=== PATIENT | male | born 1950 | race African-American/Black ===

== ENCOUNTER 2018-01-14 12:58 | Inpatient (IN) | payer MEDICARE ==
[~2018-01-14] VITALS: Ht 182.9 cm; Wt 68.9 kg
--- NOTE | 2018-01-14 13:10 | NUR ---
Pt arrived on 5150 hold (DTO), pt was already medically cleared at sending facility. Per pt is medically clear and may be trans to MHU. No beds available at this time per MHU and nursing sewing department supervisor. Pt is in room 3, no sitter available for 1:1 observation.
[2018-01-14] MEDS ORDERED: FURO40TA5 PO (13:23)
[2018-01-14] MEDS ORDERED: CHOL500L3 PO (13:23)
[2018-01-14] MEDS ORDERED: METF-440 PO (13:23)
[2018-01-14] MEDS ORDERED: CLOP75TA15 PO (13:23)
[2018-01-14] MEDS ORDERED: ATOR80TA PO (13:23)
[2018-01-14] MEDS ORDERED: METO200T49 PO (13:23)
[2018-01-14] MEDS ORDERED: LISI40TA4 PO (13:23)
[2018-01-14] MEDS ORDERED: ASPI81TA31 PO (13:23)
[2018-01-14] MEDS ORDERED: TRAZ-182 PO (13:23)
[2018-01-14] MEDS ORDERED: SPIR25TA6 PO (13:23)
[2018-01-14] MEDS ORDERED: DOCU100C36 PO (13:23)
[2018-01-14] MEDS ORDERED: SERT50TA PO (13:23)
--- NOTE | 2018-01-14 16:00 | NUR ---
Patient is resting comfortably in bed with eyes closed
--- NOTE | 2018-01-14 16:17 | NUR ---
ALEYDA SCRUGGS RN AT MHU ROOM NOT AVAILABLE AND CAN NOT TAKE REPORT AT THIS TIME. WILL CALL BACK IN 30 MINUTES.
--- NOTE | 2018-01-14 16:55 | NUR ---
Pt. admitted to [facility] , under care of Dr. URIOSTEGUI Belongs List completed
--- NOTE | 2018-01-14 16:56 | NUR ---
ALEYDA BAIRES/KAEL FUENTES HOLD PATIENT IN ER FOR NOW.
--- NOTE | 2018-01-14 17:24 | NUR ---
CALLED AND SPOKE WITH NURSE DEQUAN MACIAS TO BRING PATIENT.
--- NOTE | 2018-01-14 17:47 | NUR ---
[place] [facility] [place]. PATIENT NOT IN ANY DISTRESS.
[2018-01-14] MEDS ORDERED: LORAZEPAM 1 MG TABLET PO PRN (18:30)
[2018-01-14] MEDS ORDERED: ACETAMINOPHEN 325 MG TABLET PO PRN (18:30)
[2018-01-14] MEDS ORDERED: TEMAZEPAM 7.5 MG CAPSULE PO PRN (18:30)
[2018-01-14] MEDS ORDERED: MAG HYDROX/AL HYDROX/SIMETH 30 ML LIQUID UDC PO PRN (18:30)
[2018-01-14] MEDS ORDERED: MAGNESIUM HYDROXIDE 30 ML LIQUID UDC PO PRN (18:30)
[2018-01-14 19:30] VITALS: BP 106/71
--- NOTE | 2018-01-14 21:35 | NUR ---
GPS: Pt.is anxious right now and looking for his eye glasses. Property list shows pt.did not come in with glasses. Pt.insists that he took them off and placed it on top of a table where he was earlier. Caleb Melgoza nurse said that no glasses were left there in the ER and that he remembers seeing the pt.earlier without any eye glasses. Pt.continues to insist he has glasses. Staff attempted to call [facility] ER to ask about pt's missing eye glasses but said "we are busy right now", "call back again". Communicated with charge nurse and pt.
[2018-01-15 07:30] VITALS: BP 112/72
[2018-01-15] MEDS ORDERED: LISINOPRIL 20 MG TABLET PO SCH (09:00)
[2018-01-15] MEDS ORDERED: Medication Not On Formulary EA (Metoprolol Succinate 1 TAB) PO SCH (09:00)
[2018-01-15] MEDS: METFORMIN HCL 500 MG TABLET PO SCH ×2 (09:20→17:00)
[2018-01-15] MEDS: ASPIRIN 81 MG TAB.CHEW PO SCH (09:20)
[2018-01-15] MEDS: FUROSEMIDE 40 MG TABLET PO SCH (09:20)
[2018-01-15] MEDS: SPIRONOLACTONE 25 MG TABLET PO SCH (09:21)
[2018-01-15] MEDS: CLOPIDOGREL 75 MG TABLET PO SCH (09:21)
[2018-01-15] MEDS: CHOLECALCIFEROL 1,000 UNIT TABLET PO SCH (09:21)
[2018-01-15] MEDS: DOCUSATE SODIUM 250 MG CAPSULE PO SCH ×2 (09:21→17:00)
[2018-01-15] MEDS: METOPROLOL SUCCINATE XL 100 MG TAB.SR.24H PO SCH (09:28)
--- NOTE | 2018-01-15 16:00 | NUR ---
Room change. Contact Isolation maintained for MRSA nares[facility].
[2018-01-15 16:11] VITALS: BP 104/67
[2018-01-15 19:30] VITALS: BP 109/73
[2018-01-15] MEDS: risperiDONE 1 MG TABLET PO SCH (20:20)
[2018-01-15] MEDS: ATORVASTATIN 40 MG TABLET PO SCH (20:20)
[2018-01-15] MEDS: TRAZODONE 100 MG TABLET PO SCH (20:20)
[2018-01-15] MEDS: MUPIROCIN 2% OINT 22 GM TUBE NS SCH (20:32)
--- NOTE | 2018-01-15 22:00 | NUR ---
received to care, lying in bed, pleasant upon approach. compliant with medications, snack, and contact isolation procedures. as of 2200, he remains awake, watching tv in activity room, with isolation mask on. no distress noted. will continue to monitor closely.
--- NOTE | 2018-01-16 00:23 | NUR ---
pt is now awake. PRN restoril, given for insomnia.
--- NOTE | 2018-01-16 01:00 | NUR ---
appears to be asleep. no distress noted.
--- NOTE | 2018-01-16 06:00 | NUR ---
slept 9.5 hours total. continues to sleep. no distress noted.
[2018-01-16 07:30] VITALS: BP 104/65
[2018-01-16] MEDS: METFORMIN HCL 500 MG TABLET PO SCH ×4 (08:00→18:15)
--- NOTE | 2018-01-16 08:00 | NUR ---
Received a 67 y/o M pt to care, lying in bed, pleasant upon approach.PT on contact isolation procedures. no distress noted. will continue to monitor closely.
[2018-01-16] MEDS: FUROSEMIDE 40 MG TABLET PO SCH ×2 (08:25→09:00)
[2018-01-16] MEDS: CHOLECALCIFEROL 1,000 UNIT TABLET PO SCH ×2 (08:25→09:00)
[2018-01-16] MEDS: SPIRONOLACTONE 25 MG TABLET PO SCH ×3 (08:26→18:15)
[2018-01-16] MEDS: CLOPIDOGREL 75 MG TABLET PO SCH ×3 (08:26→18:16)
[2018-01-16] MEDS: risperiDONE 1 MG TABLET PO SCH ×4 (08:26→20:21)
[2018-01-16] MEDS: ASPIRIN 81 MG TAB.CHEW PO SCH ×3 (08:26→18:15)
[2018-01-16] MEDS: DOCUSATE SODIUM 250 MG CAPSULE PO SCH ×4 (08:26→18:18)
[2018-01-16] MEDS: MUPIROCIN 2% OINT 22 GM TUBE NS SCH ×2 (08:27→20:21)
[2018-01-16] MEDS: METOPROLOL SUCCINATE XL 100 MG TAB.SR.24H PO SCH ×3 (08:28→18:16)
[2018-01-16] MEDS: LISINOPRIL 20 MG TABLET PO SCH ×2 (10:27→18:17)
[2018-01-16 15:28] VITALS: BP 128/86
--- NOTE | 2018-01-16 16:02 | NUR ---
Initial Discharge Instructions: Patient currently resides at [facility] [[address], [place] [address]; [phone]]. Per pt, he would like to return there upon discharge. Spoke with Chase at [facility] ([phone]) who states that the patient is able to return when ready for discharge. Per [facility] records, pt has a "Lanre Chris" on file as a relative ([phone]). SW will follow-up with pt about this relative. SW will continue to collaborate with pt and MD regarding most appropriate discharge plans. SW will form a safe and proper discharge.
--- NOTE | 2018-01-16 16:05 | NUR ---
Firearms Report: Senior Sales Compensation Analyst completed and submitted [employer]arms Report for 5150 DTO certification.
--- NOTE | 2018-01-16 18:00 | NUR ---
PATIENT OFFERED HIS MEDICATION WITH THE PRESENT OF HIS PSYCHIATRIST, REFUSED ALL OF THEM, PT PUT ON A 14 DAY HOLD.
[2018-01-16] MEDS: ATORVASTATIN 40 MG TABLET PO SCH (20:21)
[2018-01-16] MEDS: TRAZODONE 100 MG TABLET PO SCH (20:21)
[2018-01-16 20:34] VITALS: BP 120/82
--- NOTE | 2018-01-16 22:00 | NUR ---
received to care, lying in bed, isolative, with covers over his head. was initially pleasant. bedtime snack was given, but he refused all medications, even his bactroban tx, for mrsa. pt remains on contact isolation for same. as of 2199, he remains asleep no distress noted. will continue to monitor closely.
--- NOTE | 2018-01-17 06:00 | NUR ---
slept 7.5 hours total. continues to sleep. no distress noted.
[2018-01-17] MEDS: METFORMIN HCL 500 MG TABLET PO SCH ×2 (08:00→18:00)
[2018-01-17] MEDS: SPIRONOLACTONE 25 MG TABLET PO SCH (09:00)
[2018-01-17] MEDS: DOCUSATE SODIUM 250 MG CAPSULE PO SCH ×2 (09:00→16:33)
[2018-01-17] MEDS: METOPROLOL SUCCINATE XL 100 MG TAB.SR.24H PO SCH (09:00)
[2018-01-17] MEDS: risperiDONE 1 MG TABLET PO SCH ×2 (09:00→21:00)
[2018-01-17] MEDS: CLOPIDOGREL 75 MG TABLET PO SCH (09:00)
[2018-01-17] MEDS: CHOLECALCIFEROL 1,000 UNIT TABLET PO SCH (09:00)
[2018-01-17] MEDS: ASPIRIN 81 MG TAB.CHEW PO SCH (09:00)
[2018-01-17] MEDS: FUROSEMIDE 40 MG TABLET PO SCH (09:00)
[2018-01-17] MEDS: MUPIROCIN 2% OINT 22 GM TUBE NS SCH ×2 (09:00→21:00)
[2018-01-17] MEDS: LISINOPRIL 20 MG TABLET PO SCH (11:00)
--- NOTE | 2018-01-17 12:30 | NUR ---
Gp/Driver'S License Examiner- Offered and encouraged to eat, refused .
--- NOTE | 2018-01-17 15:45 | NUR ---
Gps/Mine Analyst- Remains isolative, withdrawn , refused routine meds.reoffered couple of times, encouraged verbalizations of his feelings, refused to talk, told staff " get out of here, leave me alone, dont bother me".Informed patient and reviewed with patient, reason why he is here and reviewed his contact isolation , claimed he does not want to hear anything .
--- NOTE | 2018-01-17 18:47 | NUR ---
Gps/Rivet Hole Machine Operator- Patient came out of his room w/o mask on, reinforced needed to wear mask if out of his room, patient requesting hot tray for dinner, refusing sandwich, wants hot food only.Called dietary, will make chicken soup only, no staff to cook hot meal right now. .Dr Holley in to talked to patient, will take meds. per patient after dinner.Continue to monitor behavior.
[2018-01-17 20:00] VITALS: BP 111/79
--- NOTE | 2018-01-17 20:09 | NUR ---
received to care, isolating by self in room, staring at the wall, appearing distracted by internal stimuli. appears guarded upon approach. stated he was refusing all medications including bactroban treatment. he did agree to eat something, and was given a sandwich pudding juice and bottled water. currently eating in his room. remains compliant with isolation procedures. no distress noted. will continue to monitor closely.
[2018-01-17] MEDS: TRAZODONE 100 MG TABLET PO SCH (21:00)
[2018-01-17] MEDS: ATORVASTATIN 40 MG TABLET PO SCH (21:00)
--- NOTE | 2018-01-17 22:30 | NUR ---
remains isolative, and suspicious. continues to refuse all medications. currently appears to be asleep, no distress noted.
--- NOTE | 2018-01-18 02:10 | NUR ---
pt has been awake, for a while. he continues to appear to be distracted by internal stimuli, and to refuse all medications. he is now noisy in his room, banging the bedside table against the wall, and pushing it into the hallway. when redirected, he states that "rosalio did it" after two episodes of this, the table was removed, but he requested the table back in hid room. he agreed to not bang the table anymore. he is now sitting at his bed, with table in front of him, staring straight ahead. firm limits were set on his behavior. will continue to monitor closely.
--- NOTE | 2018-01-18 04:00 | NUR ---
remains awake. appears slightly calmer, now. sandwich and diet pudding were given, at his request.
--- NOTE | 2018-01-18 04:30 | NUR ---
appears to be asleep. no distress noted.
--- NOTE | 2018-01-18 06:00 | NUR ---
slept 1.0 hours total. continues to sleep. no distress noted.
[2018-01-18 07:30] VITALS: BP 104/65
[2018-01-18] MEDS: METFORMIN HCL 500 MG TABLET PO SCH ×2 (08:00→17:15)
[2018-01-18] MEDS: CHOLECALCIFEROL 1,000 UNIT TABLET PO SCH (09:00)
[2018-01-18] MEDS: risperiDONE 1 MG TABLET PO SCH ×2 (09:00→20:12)
[2018-01-18] MEDS: ASPIRIN 81 MG TAB.CHEW PO SCH (09:00)
[2018-01-18] MEDS: METOPROLOL SUCCINATE XL 100 MG TAB.SR.24H PO SCH (09:00)
[2018-01-18] MEDS: CLOPIDOGREL 75 MG TABLET PO SCH (09:00)
[2018-01-18] MEDS: FUROSEMIDE 40 MG TABLET PO SCH (09:00)
[2018-01-18] MEDS: DOCUSATE SODIUM 250 MG CAPSULE PO SCH ×2 (09:00→17:00)
[2018-01-18] MEDS: SPIRONOLACTONE 25 MG TABLET PO SCH (09:00)
[2018-01-18] MEDS: MUPIROCIN 2% OINT 22 GM TUBE NS SCH ×2 (09:00→21:00)
--- NOTE | 2018-01-18 09:14 | NUR ---
PT REFUSED ALL AM MEDICATIONS. STATES "I'M JUST NOT TAKING IT, LADY" BUT REFUSES TO ELABORATE FURTHER AND WILL IGNORE NURSES QUESTIONS. PT RESPONDING TO INTERNAL STIMULI, TALKS TO SELF. PT WILL REIMBURSEMENT REPRESENTATIVE THE MIDDLE OF THE HALLWAY, LOOKING DOWN AND NOT MOVING. ACTING QUITE BIZARRE. PT WILL THEN HAVE EPISODES OF PUNCHING THE AIR AND APPEARS TO BE "DODGING" UNSEEN THINGS. WHEN ASKED WHAT HE IS DOING, PT RESPONDS WITH "NOTHING" AND REFUSES TO ADMIT TO AUDITORY OR VISUAL HALLUCINATIONS AT THIS TIME.
[2018-01-18] MEDS: LISINOPRIL 20 MG TABLET PO SCH (11:00)
[2018-01-18 15:16] VITALS: BP 100/67
[2018-01-18 20:00] VITALS: BP 102/71
[2018-01-18] MEDS: ATORVASTATIN 40 MG TABLET PO SCH (20:12)
[2018-01-18] MEDS: TRAZODONE 100 MG TABLET PO SCH (20:12)
[2018-01-19 07:30] VITALS: BP 115/84
[2018-01-19] MEDS: METFORMIN HCL 500 MG TABLET PO SCH ×2 (08:00→17:01)
[2018-01-19] MEDS: CHOLECALCIFEROL 1,000 UNIT TABLET PO SCH (09:00)
[2018-01-19] MEDS: DOCUSATE SODIUM 250 MG CAPSULE PO SCH ×2 (09:00→17:00)
[2018-01-19] MEDS: MUPIROCIN 2% OINT 22 GM TUBE NS SCH ×2 (09:00→21:00)
[2018-01-19] MEDS: METOPROLOL SUCCINATE XL 100 MG TAB.SR.24H PO SCH (09:00)
[2018-01-19] MEDS: SPIRONOLACTONE 25 MG TABLET PO SCH (09:00)
[2018-01-19] MEDS: ASPIRIN 81 MG TAB.CHEW PO SCH (09:00)
[2018-01-19] MEDS: CLOPIDOGREL 75 MG TABLET PO SCH (09:00)
[2018-01-19] MEDS: FUROSEMIDE 40 MG TABLET PO SCH (09:00)
[2018-01-19] MEDS: risperiDONE 1 MG TABLET PO SCH ×2 (09:00→21:00)
--- NOTE | 2018-01-19 09:05 | NUR ---
Pt continues to refuse all medications and treatments. No combative behavior at this time, but pt is quite unpredictable. Responds to internal stimuli. Selectively answers questions. Pt seen running in and out of room for no apparent reason and other bizarre behaviors. Pt upset that he has no food, but his breakfast tray is on table right in front of him. Pt difficult to redirect at this time.
[2018-01-19] MEDS: LISINOPRIL 20 MG TABLET PO SCH (11:00)
[2018-01-19 15:38] VITALS: BP 122/76
[2018-01-19 20:00] VITALS: BP 126/81
[2018-01-19] MEDS: TRAZODONE 100 MG TABLET PO SCH (21:00)
[2018-01-19] MEDS: ATORVASTATIN 40 MG TABLET PO SCH (21:00)
--- NOTE | 2018-01-19 22:00 | NUR ---
Patient awake, alert, and oriented x2, person and place. Speech is clear, normal rate and able to make known of his needs. Behavior: calm but noncompliant with medication regimen. Stated " I don't need no medication but make sure I have food to eat"
[2018-01-20] MEDS: METFORMIN HCL 500 MG TABLET PO SCH ×2 (08:00→18:00)
[2018-01-20] MEDS: CHOLECALCIFEROL 1,000 UNIT TABLET PO SCH (09:00)
[2018-01-20] MEDS: SPIRONOLACTONE 25 MG TABLET PO SCH (09:00)
[2018-01-20] MEDS: METOPROLOL SUCCINATE XL 100 MG TAB.SR.24H PO SCH (09:00)
[2018-01-20] MEDS: CLOPIDOGREL 75 MG TABLET PO SCH (09:00)
[2018-01-20] MEDS: ASPIRIN 81 MG TAB.CHEW PO SCH (09:00)
[2018-01-20] MEDS: FUROSEMIDE 40 MG TABLET PO SCH (09:00)
[2018-01-20] MEDS: risperiDONE 1 MG TABLET PO SCH (09:00)
[2018-01-20] MEDS: DOCUSATE SODIUM 250 MG CAPSULE PO SCH ×2 (09:00→17:00)
[2018-01-20] MEDS: MUPIROCIN 2% OINT 22 GM TUBE NS SCH (09:00)
[2018-01-20] MEDS: LISINOPRIL 20 MG TABLET PO SCH (11:00)
[2018-01-20] MEDS: TRAZODONE 100 MG TABLET PO SCH (21:00)
[2018-01-20] MEDS: ATORVASTATIN 40 MG TABLET PO SCH (21:00)
--- NOTE | 2018-01-21 06:57 | NUR ---
Received pt to care, pt was in his room when policy writer went to introduce myself as his nurse, the pt yelled aggressively "what do you want" pt yelled for policy writer to get out of his room, yelled that he did not want a snack, pt refused meds.
[2018-01-21] MEDS: METFORMIN HCL 500 MG TABLET PO SCH ×2 (08:00→17:07)
[2018-01-21] MEDS: ASPIRIN 81 MG TAB.CHEW PO SCH (08:31)
[2018-01-21] MEDS: CLOPIDOGREL 75 MG TABLET PO SCH (08:31)
[2018-01-21] MEDS: SPIRONOLACTONE 25 MG TABLET PO SCH (08:31)
[2018-01-21] MEDS: FUROSEMIDE 40 MG TABLET PO SCH (08:31)
[2018-01-21] MEDS: risperiDONE 0.5 MG TABLET PO SCH ×2 (08:32→21:00)
[2018-01-21] MEDS: METOPROLOL SUCCINATE XL 100 MG TAB.SR.24H PO SCH (08:32)
[2018-01-21] MEDS: CHOLECALCIFEROL 1,000 UNIT TABLET PO SCH (08:33)
[2018-01-21] MEDS: DOCUSATE SODIUM 250 MG CAPSULE PO SCH ×2 (08:47→16:11)
--- NOTE | 2018-01-21 09:44 | NUR ---
GPS: Nursing Notes: Destructive Behavior To Others: Patient is awake and responding to his name, labile, unpredictable behavior, loud and angry speech, resistant with nursing care, refusing his medications and treatment, refusing V/S, gets easily irritable when redirected, stated, "You just feed me and get the hell out of here...", throwing food that he does not like on the floor, threatening behavior toward staff when assisting him with ADL's, MRSA in the nares, but refusing his antibiotic treatment, episodes of responding to internal stimuli by mumbling to himself, unable to formulate a viable plan for self care, continue with treatment plan.
[2018-01-21] MEDS: LISINOPRIL 20 MG TABLET PO SCH (11:00)
[2018-01-21 20:04] VITALS: BP 107/78
[2018-01-21] MEDS: TRAZODONE 100 MG TABLET PO SCH (21:00)
[2018-01-21] MEDS: ATORVASTATIN 40 MG TABLET PO SCH (21:00)
[2018-01-22] MEDS: METFORMIN HCL 500 MG TABLET PO SCH ×2 (08:00→17:50)
[2018-01-22] MEDS: risperiDONE 0.5 MG TABLET PO SCH (09:00)
[2018-01-22] MEDS: ASPIRIN 81 MG TAB.CHEW PO SCH (09:00)
[2018-01-22] MEDS: FUROSEMIDE 40 MG TABLET PO SCH (09:00)
[2018-01-22] MEDS: SPIRONOLACTONE 25 MG TABLET PO SCH (09:00)
[2018-01-22] MEDS: DOCUSATE SODIUM 250 MG CAPSULE PO SCH ×2 (09:00→17:00)
[2018-01-22] MEDS: CLOPIDOGREL 75 MG TABLET PO SCH (09:00)
[2018-01-22] MEDS: METOPROLOL SUCCINATE XL 100 MG TAB.SR.24H PO SCH (09:00)
[2018-01-22] MEDS: CHOLECALCIFEROL 1,000 UNIT TABLET PO SCH (09:00)
[2018-01-22] MEDS: LISINOPRIL 20 MG TABLET PO SCH (11:00)
[2018-01-22] MEDS: HALOPERIDOL 5 MG TABLET PO SCH ×2 (12:45→20:49)
[2018-01-22] MEDS: BENZTROPINE MESYLATE 0.5 MG TABLET PO SCH ×2 (12:45→20:48)
[2018-01-22] MEDS ORDERED: HALOPERIDOL LACTATE 5 MG/1 ML VIAL IM SCH (12:45)
[2018-01-22] MEDS: BENZTROPINE MESYLATE 2 MG/2 ML AMPUL IM PRN ×2 (13:20→20:50)
[2018-01-22] MEDS: TRAZODONE 100 MG TABLET PO SCH (20:49)
[2018-01-22] MEDS: ATORVASTATIN 40 MG TABLET PO SCH (20:49)
[2018-01-22] MEDS: HALOPERIDOL LACTATE 5 MG/1 ML VIAL IM PRN (20:50)
[2018-01-22 21:36] VITALS: BP 106/68
[2018-01-23] MEDS: METFORMIN HCL 500 MG TABLET PO SCH ×2 (08:00→17:51)
[2018-01-23] MEDS: FUROSEMIDE 40 MG TABLET PO SCH (09:00)
[2018-01-23] MEDS: SPIRONOLACTONE 25 MG TABLET PO SCH (09:00)
[2018-01-23] MEDS: HALOPERIDOL 5 MG TABLET PO SCH ×2 (09:00→21:18)
[2018-01-23] MEDS: CLOPIDOGREL 75 MG TABLET PO SCH (09:00)
[2018-01-23] MEDS: METOPROLOL SUCCINATE XL 100 MG TAB.SR.24H PO SCH (09:00)
[2018-01-23] MEDS: BENZTROPINE MESYLATE 0.5 MG TABLET PO SCH ×2 (09:00→21:18)
[2018-01-23] MEDS: CHOLECALCIFEROL 1,000 UNIT TABLET PO SCH (09:00)
[2018-01-23] MEDS: ASPIRIN 81 MG TAB.CHEW PO SCH (09:00)
[2018-01-23] MEDS: DOCUSATE SODIUM 250 MG CAPSULE PO SCH ×2 (09:00→17:00)
[2018-01-23] MEDS: BENZTROPINE MESYLATE 2 MG/2 ML AMPUL IM PRN (09:40)
[2018-01-23] MEDS: HALOPERIDOL LACTATE 5 MG/1 ML VIAL IM PRN (09:51)
[2018-01-23] MEDS: LISINOPRIL 20 MG TABLET PO SCH (11:00)
[2018-01-23 11:49] VITALS: BP 104/69
--- NOTE | 2018-01-23 14:55 | NUR ---
Discharge Planning Note: E Commerce Director placed call to [facility] ([phone]) to update about patient's status and confirm discharge plan to return there when ready. Spoke with Adwoa in admissions who confirmed that patient will be welcome back when ready for discharge. Per Adwoa, the facility will need an updated Physician's Report upon discharge. SW collaborated with treatment team. SW will fax Physician's Report when completed. SW will continue to coordinate with treatment team to ensure safe discharge for patient.
[2018-01-23 15:59] VITALS: BP 93/65
[2018-01-23] MEDS: ATORVASTATIN 40 MG TABLET PO SCH (21:18)
[2018-01-23] MEDS: TRAZODONE 100 MG TABLET PO SCH (21:18)
[2018-01-23 21:47] VITALS: BP 101/60
[2018-01-24 07:24] LABS: BASOPHILS % (AUTO) 0.7 % (0.0-2.0); EOSINOPHILS # (AUTO) 0.1 K/uL (0.0-0.7); EOSINOPHILS % (AUTO) 1.7 % (0.0-7.0); HEMATOCRIT 35.8 % (36.7-47.1); HEMOGLOBIN 12.1 g/dL (12.5-16.3); LYMPHOCYTES # (AUTO) 2.5 K/uL (20.0-40.0); LYMPHOCYTES % (AUTO) 34.8 % (20.5-51.5); MEAN CORPUSCULAR HEMOGLOBIN 32.2 uug (23.8-33.4); MEAN CORPUSCULAR HGB CONC 34 g/dL (32.5-36.3); MEAN CORPUSCULAR VOLUME 95.4 fL (73.0-96.2); MONOCYTES # (AUTO) 0.5 K/uL (2.0-10.0); MONOCYTES % (AUTO) 7.4 % (0.0-11.0); NEUTROPHILS % (AUTO) 55.4 % (38.5-71.5); PLATELET COUNT (AUTO) 133 K/uL (152-348); RED BLOOD CELL COUNT(AUTO) 3.75 MIL/uL (4.06-5.63); WHITE BLOOD COUNT (AUTO) 7.3 K/uL (3.6-10.2)
[2018-01-24 07:30] VITALS: BP 95/66
[2018-01-24 07:41] LABS: CREATININE 0.9 mg/dL (0.6-1.3); POTASSIUM 4.3 mmol/L (3.5-5.1)
[2018-01-24] MEDS: SPIRONOLACTONE 25 MG TABLET PO SCH (08:27)
[2018-01-24] MEDS: METOPROLOL SUCCINATE XL 100 MG TAB.SR.24H PO SCH (08:28)
[2018-01-24] MEDS: DOCUSATE SODIUM 250 MG CAPSULE PO SCH ×2 (08:29→17:07)
[2018-01-24] MEDS: ASPIRIN 81 MG TAB.CHEW PO SCH (08:29)
[2018-01-24] MEDS: CLOPIDOGREL 75 MG TABLET PO SCH (08:29)
[2018-01-24] MEDS: HALOPERIDOL 5 MG TABLET PO SCH ×2 (08:29→20:44)
[2018-01-24] MEDS: BENZTROPINE MESYLATE 0.5 MG TABLET PO SCH ×2 (08:29→20:44)
[2018-01-24] MEDS: FUROSEMIDE 40 MG TABLET PO SCH (08:30)
[2018-01-24] MEDS: METFORMIN HCL 500 MG TABLET PO SCH ×2 (08:30→17:07)
[2018-01-24] MEDS: CHOLECALCIFEROL 1,000 UNIT TABLET PO SCH (08:30)
[2018-01-24] MEDS: LISINOPRIL 20 MG TABLET PO SCH (11:00)
[2018-01-24 20:18] VITALS: BP 93/66
[2018-01-24] MEDS: MUPIROCIN 2% OINT 22 GM TUBE NS SCH (20:43)
[2018-01-24] MEDS: TRAZODONE 100 MG TABLET PO SCH (20:44)
[2018-01-24] MEDS: ATORVASTATIN 40 MG TABLET PO SCH (20:44)
--- NOTE | 2018-01-24 21:03 | NUR ---
Received pt sleeping in bed, aroused easily to verbal stimuli. Meds given as ordered, pt compliant. Contact isolation and safety measures maintained. Will continue to monitor.
[2018-01-25 07:30] VITALS: BP 114/63
[2018-01-25] MEDS: CLOPIDOGREL 75 MG TABLET PO SCH (08:17)
[2018-01-25] MEDS: BENZTROPINE MESYLATE 0.5 MG TABLET PO SCH ×2 (08:17→20:34)
[2018-01-25] MEDS: METFORMIN HCL 500 MG TABLET PO SCH ×2 (08:17→16:37)
[2018-01-25] MEDS: HALOPERIDOL 5 MG TABLET PO SCH ×2 (08:17→20:35)
[2018-01-25] MEDS: CHOLECALCIFEROL 1,000 UNIT TABLET PO SCH (08:17)
[2018-01-25] MEDS: FUROSEMIDE 40 MG TABLET PO SCH (08:17)
[2018-01-25] MEDS: ASPIRIN 81 MG TAB.CHEW PO SCH (08:17)
[2018-01-25] MEDS: METOPROLOL SUCCINATE XL 100 MG TAB.SR.24H PO SCH (08:17)
[2018-01-25] MEDS: DOCUSATE SODIUM 250 MG CAPSULE PO SCH ×2 (08:17→16:37)
[2018-01-25] MEDS: MUPIROCIN 2% OINT 22 GM TUBE NS SCH ×2 (08:18→20:34)
[2018-01-25] MEDS: SPIRONOLACTONE 25 MG TABLET PO SCH (08:22)
[2018-01-25] MEDS: LISINOPRIL 20 MG TABLET PO SCH (11:00)
[2018-01-25 15:31] VITALS: BP 130/60
[2018-01-25] MEDS: TRAZODONE 100 MG TABLET PO SCH (20:35)
[2018-01-25] MEDS: ATORVASTATIN 40 MG TABLET PO SCH (20:35)
--- NOTE | 2018-01-25 20:49 | NUR ---
Received pt to care, pt laying in bed, pt is more cooperative with me than the last time that I saw him. I offered the pt his medication and he states that he "already took it". I informed the pt that he needs to take it at night time as well. Pt refused stating "save it for tomorrow". Pt is quiet in his room, withdrawn, suspicious, guarded. I offered the pt a snack but he refused.
--- NOTE | 2018-01-25 21:15 | NUR ---
Pt became aggressive in tone and body language when I offered the pt his medication for the second time, pt still refused to take the medication "get out of my room" "I took my medication already" "I do not want medication" "leave me alone" "save it for tomorrow". Emergency Dispatcher did not want to agitate the pt as he was in his room quiet. Emergency Dispatcher did not feel safe enforcing the patient to take his medication as there is all female staff on duty tonight with numerous highly acute psychotic, unpredictable and potentially violent patients. For the safety of the staff and milieu of the unit, in order to not further disrupt the unit, the medication IM was not given.
[2018-01-25 21:22] VITALS: BP 95/52
--- NOTE | 2018-01-26 06:39 | NUR ---
On-call MD Dr. Beckford notified by field underwriter that pt IM was not given for safety. Dr. Beckford informed field underwriter to document and states that he will talk to the patient today.
[2018-01-26 08:00] VITALS: BP 112/67
[2018-01-26] MEDS: MUPIROCIN 2% OINT 22 GM TUBE NS SCH ×2 (08:23→20:24)
[2018-01-26] MEDS: BENZTROPINE MESYLATE 0.5 MG TABLET PO SCH ×2 (09:24→20:23)
[2018-01-26] MEDS: CLOPIDOGREL 75 MG TABLET PO SCH (09:24)
[2018-01-26] MEDS: METFORMIN HCL 500 MG TABLET PO SCH ×2 (09:24→17:02)
[2018-01-26] MEDS: DOCUSATE SODIUM 250 MG CAPSULE PO SCH ×2 (09:24→17:02)
[2018-01-26] MEDS: ASPIRIN 81 MG TAB.CHEW PO SCH (09:24)
[2018-01-26] MEDS: CHOLECALCIFEROL 1,000 UNIT TABLET PO SCH (09:24)
[2018-01-26] MEDS: FUROSEMIDE 40 MG TABLET PO SCH (09:24)
[2018-01-26] MEDS: SPIRONOLACTONE 25 MG TABLET PO SCH (09:24)
[2018-01-26] MEDS: HALOPERIDOL 5 MG TABLET PO SCH ×2 (09:24→20:23)
[2018-01-26] MEDS: METOPROLOL SUCCINATE XL 100 MG TAB.SR.24H PO SCH (09:24)
[2018-01-26] MEDS: LISINOPRIL 20 MG TABLET PO SCH (11:00)
[2018-01-26 15:02] VITALS: BP 110/70
[2018-01-26 20:18] VITALS: BP 97/67
[2018-01-26] MEDS: TRAZODONE 100 MG TABLET PO SCH (20:23)
[2018-01-26] MEDS: ATORVASTATIN 40 MG TABLET PO SCH (20:23)
[2018-01-27 07:30] VITALS: BP 97/61
[2018-01-27] MEDS: METFORMIN HCL 500 MG TABLET PO SCH ×2 (08:53→17:06)
[2018-01-27] MEDS: ASPIRIN 81 MG TAB.CHEW PO SCH (08:54)
[2018-01-27] MEDS: DOCUSATE SODIUM 250 MG CAPSULE PO SCH ×2 (08:54→16:38)
[2018-01-27] MEDS: BENZTROPINE MESYLATE 0.5 MG TABLET PO SCH (08:54)
[2018-01-27] MEDS: SPIRONOLACTONE 25 MG TABLET PO SCH (08:54)
[2018-01-27] MEDS: MUPIROCIN 2% OINT 22 GM TUBE NS SCH ×2 (08:54→20:23)
[2018-01-27] MEDS: CLOPIDOGREL 75 MG TABLET PO SCH (08:55)
[2018-01-27] MEDS: FUROSEMIDE 40 MG TABLET PO SCH (08:55)
[2018-01-27] MEDS: CHOLECALCIFEROL 1,000 UNIT TABLET PO SCH (08:55)
[2018-01-27] MEDS: METOPROLOL SUCCINATE XL 100 MG TAB.SR.24H PO SCH (08:55)
[2018-01-27] MEDS: HALOPERIDOL 5 MG TABLET PO SCH ×2 (08:55→16:38)
[2018-01-27] MEDS: LISINOPRIL 20 MG TABLET PO SCH (10:07)
[2018-01-27] MEDS: BENZTROPINE MESYLATE 1 MG TABLET PO SCH (16:38)
[2018-01-27 16:42] VITALS: BP 92/56
[2018-01-27] MEDS ORDERED: BENZTROPINE MESYLATE 2 MG/2 ML AMPUL IM SCH (17:00)
[2018-01-27] MEDS ORDERED: HALOPERIDOL LACTATE 5 MG/1 ML VIAL IM PRN (17:00)
[2018-01-27] MEDS ORDERED: BENZTROPINE MESYLATE 2 MG/2 ML AMPUL IM PRN (17:00)
[2018-01-27] MEDS ORDERED: HALOPERIDOL LACTATE 5 MG/1 ML VIAL IM SCH (17:00)
[2018-01-27 20:00] VITALS: BP 102/68
[2018-01-27] MEDS: TRAZODONE 100 MG TABLET PO SCH (20:23)
[2018-01-27] MEDS: ATORVASTATIN 40 MG TABLET PO SCH (20:23)
[2018-01-28] MEDS ORDERED: TEMAZEPAM 7.5 MG CAPSULE PO PRN (04:45)
[2018-01-28] MEDS ORDERED: LORAZEPAM 1 MG TABLET PO PRN (04:45)
[2018-01-28 07:30] VITALS: BP 91/50
[2018-01-28] MEDS: BENZTROPINE MESYLATE 1 MG TABLET PO SCH ×3 (08:42→20:20)
[2018-01-28] MEDS: SPIRONOLACTONE 25 MG TABLET PO SCH (08:42)
[2018-01-28] MEDS: CHOLECALCIFEROL 1,000 UNIT TABLET PO SCH (08:42)
[2018-01-28] MEDS: METFORMIN HCL 500 MG TABLET PO SCH ×2 (08:42→17:17)
[2018-01-28] MEDS: DOCUSATE SODIUM 250 MG CAPSULE PO SCH ×2 (08:42→17:00)
[2018-01-28] MEDS: MUPIROCIN 2% OINT 22 GM TUBE NS SCH ×2 (08:42→20:35)
[2018-01-28] MEDS: ASPIRIN 81 MG TAB.CHEW PO SCH (08:42)
[2018-01-28] MEDS: CLOPIDOGREL 75 MG TABLET PO SCH (08:43)
[2018-01-28] MEDS: HALOPERIDOL 5 MG TABLET PO SCH ×3 (08:43→20:21)
[2018-01-28] MEDS: METOPROLOL SUCCINATE XL 100 MG TAB.SR.24H PO SCH (08:43)
[2018-01-28] MEDS: FUROSEMIDE 40 MG TABLET PO SCH (08:43)
[2018-01-28] MEDS: LISINOPRIL 20 MG TABLET PO SCH (11:00)
[2018-01-28 17:25] VITALS: BP 92/55
[2018-01-28] MEDS: ATORVASTATIN 40 MG TABLET PO SCH (20:20)
[2018-01-28] MEDS: TRAZODONE 100 MG TABLET PO SCH (20:21)
[2018-01-28 20:41] VITALS: BP 92/60
[2018-01-29 07:30] VITALS: BP 113/74
[2018-01-29] MEDS: SPIRONOLACTONE 25 MG TABLET PO SCH (08:51)
[2018-01-29] MEDS: FUROSEMIDE 40 MG TABLET PO SCH (08:51)
[2018-01-29] MEDS: ASPIRIN 81 MG TAB.CHEW PO SCH (08:51)
[2018-01-29] MEDS: DOCUSATE SODIUM 250 MG CAPSULE PO SCH ×2 (08:51→17:31)
[2018-01-29] MEDS: CHOLECALCIFEROL 1,000 UNIT TABLET PO SCH (08:51)
[2018-01-29] MEDS: HALOPERIDOL 5 MG TABLET PO SCH ×2 (08:51→20:26)
[2018-01-29] MEDS: CLOPIDOGREL 75 MG TABLET PO SCH (08:51)
[2018-01-29] MEDS: BENZTROPINE MESYLATE 1 MG TABLET PO SCH ×2 (08:51→20:26)
[2018-01-29] MEDS: METFORMIN HCL 500 MG TABLET PO SCH ×2 (08:51→17:30)
[2018-01-29] MEDS: MUPIROCIN 2% OINT 22 GM TUBE NS SCH ×2 (08:52→20:30)
[2018-01-29] MEDS: METOPROLOL SUCCINATE XL 100 MG TAB.SR.24H PO SCH (09:00)
[2018-01-29] MEDS: LISINOPRIL 20 MG TABLET PO SCH (11:00)
[2018-01-29 15:09] VITALS: BP 110/75
--- NOTE | 2018-01-29 15:10 | NUR ---
Discharge Planning Note: Sub Prior spoke with Jack Mcknight Ekg Manager, Adwoa ([phone]) to discuss discharge planning. Adwoa aware and agreeable with pt's discharge plan to return on 01/30 or 01/31. SW faxed updated Physician's Report and medication list ([phone]). DMITRY will continue to follow-up.
--- NOTE | 2018-01-29 15:47 | NUR ---
Activity Group Note: Patients were asked to draw a picture of Fall and to join in discussion of what Fall means to them or any memories they may have of the Fall season. Subjective: "No, I'm ok" [Patient made this statement when asked if he would like to draw a picture] Objective: Patient appeared withdrawn and not interested in engaging with peers. Patient seemed to express no interest in the activity, though he did agree to sit with peers in community room Assessment: Patient needs encouragement and support in engaging with peers and activities. Plan: Encourage group attendance as scheduled. breast worker will continue to provide encouragement and support in helping patient engage with peers and group activity.
[2018-01-29 19:45] VITALS: BP 98/64
[2018-01-29] MEDS: TRAZODONE 100 MG TABLET PO SCH (20:26)
[2018-01-29] MEDS: ATORVASTATIN 40 MG TABLET PO SCH (20:26)
[2018-01-29 20:27] VITALS: BP 113/73
[2018-01-30 07:30] VITALS: BP 99/62
[2018-01-30] MEDS: METFORMIN HCL 500 MG TABLET PO SCH ×2 (08:02→17:22)
[2018-01-30] MEDS: ASPIRIN 81 MG TAB.CHEW PO SCH (08:11)
[2018-01-30] MEDS: CHOLECALCIFEROL 1,000 UNIT TABLET PO SCH (08:11)
[2018-01-30] MEDS: CLOPIDOGREL 75 MG TABLET PO SCH (08:11)
[2018-01-30] MEDS: DOCUSATE SODIUM 250 MG CAPSULE PO SCH ×2 (08:11→17:22)
[2018-01-30] MEDS: BENZTROPINE MESYLATE 1 MG TABLET PO SCH ×2 (08:11→20:05)
[2018-01-30] MEDS: HALOPERIDOL 5 MG TABLET PO SCH ×2 (08:12→20:05)
[2018-01-30] MEDS: METOPROLOL SUCCINATE XL 100 MG TAB.SR.24H PO SCH (08:12)
[2018-01-30] MEDS: MUPIROCIN 2% OINT 22 GM TUBE NS SCH ×4 (08:14→20:06)
[2018-01-30] MEDS: CLOTRIMAZOLE 1% CREAM 30 GM TUBE TOP SCH (08:23)
[2018-01-30] MEDS: FUROSEMIDE 40 MG TABLET PO SCH (09:51)
[2018-01-30] MEDS: SPIRONOLACTONE 25 MG TABLET PO SCH (09:51)
[2018-01-30] MEDS ORDERED: INFLUENZA VACCINE 2018-2019 0.5 ML DISP.SYRIN IM ONE (10:00)
[2018-01-30] MEDS: LISINOPRIL 20 MG TABLET PO SCH (11:00)
--- NOTE | 2018-01-30 11:15 | NUR ---
Spoke with Shi from [facility], the facility where patient is resigning. Per Shi, patient has supply of current medical medications at this time.
--- NOTE | 2018-01-30 11:55 | NUR ---
Discharge Note: Patient will be discharged back to [facility] [[address] [place] [address]; ] via taxi today. Spoke with Adwoa at the facility who states they are ready to accept the patient today. Patient does not have any family or friend contacts. Patient is alert and oriented x3, denies SI/HI, and is aware and agreeable with discharge plan. Patient will continue to follow-up with his Primary Care Physician, Dr. Russell Montoya [[address] [place] [address]; [phone]]. Patient was given a list of Medicare-accepting Psychiatrists in his area. A Home Health Order for Medication Management was faxed to [facility] (ph. [phone]; fax [phone]). Awaiting response if patient was accepted. Patient was provided with outpatient mental health resources to [facility] , [facility] Sor[facility] , and the National Suicide Prevention Lifeline .
[2018-01-30 15:50] VITALS: BP 86/51
[2018-01-30] MEDS: ATORVASTATIN 40 MG TABLET PO SCH (20:05)
[2018-01-30] MEDS: TRAZODONE 100 MG TABLET PO SCH (20:05)
[2018-01-31 07:30] VITALS: BP 93/58
[2018-01-31 09:00] VITALS: BP 93/58
[2018-01-31] MEDS: METOPROLOL SUCCINATE XL 100 MG TAB.SR.24H PO SCH (09:00)
[2018-01-31] MEDS: MUPIROCIN 2% OINT 22 GM TUBE NS SCH (09:00)
[2018-01-31] MEDS: SPIRONOLACTONE 25 MG TABLET PO SCH (09:00)
[2018-01-31] MEDS: FUROSEMIDE 40 MG TABLET PO SCH (09:00)
[2018-01-31] MEDS: CHOLECALCIFEROL 1,000 UNIT TABLET PO SCH (09:41)
[2018-01-31] MEDS: DOCUSATE SODIUM 250 MG CAPSULE PO SCH (09:42)
[2018-01-31] MEDS: METFORMIN HCL 500 MG TABLET PO SCH (09:42)
[2018-01-31] MEDS: BENZTROPINE MESYLATE 1 MG TABLET PO SCH (09:42)
[2018-01-31] MEDS: CLOPIDOGREL 75 MG TABLET PO SCH (09:42)
[2018-01-31] MEDS: CLOTRIMAZOLE 1% CREAM 30 GM TUBE TOP SCH (09:42)
[2018-01-31] MEDS: HALOPERIDOL 5 MG TABLET PO SCH (09:42)
[2018-01-31] MEDS: ASPIRIN 81 MG TAB.CHEW PO SCH (09:42)
[2018-01-31] MEDS: LISINOPRIL 20 MG TABLET PO SCH (11:00)
--- NOTE | 2018-01-31 12:23 | NUR ---
DC Planning Note: DMITRY faxed updated clinicals to Deirdre at [facility] (ph. [phone]; fx [phone]). Awaiting call back if patient is accepted. DMITRY will continue to follow-up.
--- NOTE | 2018-01-31 14:08 | NUR ---
UPDATED DC NOTE: Patient will be discharged back to [facility] [[address] [place] [address]; ] via taxi today. Spoke with Shilpa at the facility who states they are ready to accept the patient today since his MRSA is colonized. Patient does not have any family or friend contacts. Patient is alert and oriented x3, denies SI/HI, and is aware and agreeable with discharge plan. Patient will continue to follow-up with his Primary Care Physician, Dr. Russell Montoya [[address] [place] [address]; [phone]]. Patient was given a list of Medicare-accepting Psychiatrists in his area. A Home Health Order for Medication Management was faxed to [facility] (ph. [phone]; fax [phone]). Awaiting response if patient was accepted. Patient was provided with outpatient mental health resources to [facility] , [facility] , and the National Suicide Prevention Lifeline .
--- NOTE | 2018-01-31 16:45 | NUR ---
Gps/Supervisor Grading- Discharge instructions given, pt. verbalized understanding. reviewed,medications/prescriptions, diet, safety emphasized, needed to follow up with Primary Medical Doctor, and Psychiatrist as recommended. Patient in good spirit, denies any discomfort, all belongings given back to patient. Discharged via taxi-(voucher) all belongings given back to patient . No Complaints noted.
== END 2018-01-31 17:00 | disposition home health service (06) | DRG 885 ==
LOC: ER 12:58 → GPS 17:00
PROVIDERS: ADMIT Psychiatry & Neurology Psychiatry; ATTEND Family Medicine
PROC: 0HBRXZZ Excision of Toe Nail, External Approach (ICD-10-PCS; principal; 2018-01-29)
DX: F25.9 Schizoaffective disorder, unspecified (principal); E44.1 Mild protein-calorie malnutrition; Z22.322 Carrier or suspected carrier of Methicillin resistant Staphylococcus aureus; E11.42 Type 2 diabetes mellitus with diabetic polyneuropathy; B35.1 Tinea unguium; B35.3 Tinea pedis; L60.3 Nail dystrophy; G30.9 Alzheimer's disease, unspecified; F02.80 Dementia in other diseases classified elsewhere, unspecified severity, without behavioral disturbance, psychotic disturbance, mood disturbance, and anxiety; Z79.02 Long term (current) use of antithrombotics/antiplatelets; Z79.82 Long term (current) use of aspirin; Z79.899 Other long term (current) drug therapy; Z79.84 Long term (current) use of oral hypoglycemic drugs; Z83.3 Family history of diabetes mellitus; Z82.3 Family history of stroke; Z80.9 Family history of malignant neoplasm, unspecified; I10 Essential (primary) hypertension; F32.9 Major depressive disorder, single episode, unspecified; E78.5 Hyperlipidemia, unspecified; Z68.20 Body mass index [BMI] 20.0-20.9, adult; Z78.9 Other specified health status
CPT/HCPCS: 36415; 85025; 90686; A4663; J0515; J1630